=== PATIENT | female | born 1945 | race Caucasian/White ===

== ENCOUNTER → 2024-08-14 | Outpatient (REF) | payer MEDICARE ==
[2024-08-14 19:35] LABS: C REACTIVE PROTEIN QUANTITATIV 0.58 MG/DL (<1.0)
[2024-08-14 19:55] LABS: HEPATITIS B SURFACE ANTIGEN NEGATIVE (NEGATIVE)
[2024-08-14 20:16] LABS: HEPATITIS B CORE ANTIBODY IGM NEGATIVE (NEGATIVE); HEPATITIS C VIRUS ABY INDEX 0.02 INDEX (<0.8)
== END ==
LOC: M SFHCRHEU 14:32
PROVIDERS: ATTEND Internal Medicine Rheumatology
DX: M05.79 Rheumatoid arthritis with rheumatoid factor of multiple sites without organ or systems involvement (principal); Z79.60 Long term (current) use of unspecified immunomodulators and immunosuppressants; M15.9 Polyosteoarthritis, unspecified